=== PATIENT | female | born 1985 | race Hispanic/Latino ===

== ENCOUNTER 2019-02-05 14:05 | Inpatient (IN) | payer SELFPAY ==
[~2019-02-05] VITALS: Ht 154.9 cm; Wt 65.8 kg
[2019-02-05 14:34] LABS: BASOPHILS % (AUTO) 1.2 % (0.0-5.0); EOSINOPHILS % (AUTO) 1.4 % (0.0-8.0); HEMATOCRIT 37.9 % (36-48); LYMPHOCYTES % (AUTO) 24.3 % (21.0-51.0); MEAN CORPUSCULAR HEMOGLOBIN 25.3 pg (27.0-33.0); MEAN CORPUSCULAR HGB CONC 32.9 g/dL (32.0-36.0); MEAN CORPUSCULAR VOLUME 76.9 fL (79-99); NEUTROPHILS % (AUTO) 67.1 % (40.0-77.0); PLATELET COUNT (AUTO) 313 K/uL (130-400); RED BLOOD CELL COUNT(AUTO) 4.93 MIL/uL (4.00-5.50); RED CELL DISTRIBUTION WIDTH 17.2 % (11.0-15.5); WHITE BLOOD COUNT (AUTO) 6.3 K/uL (4.8-10.8)
[2019-02-05 14:35] LABS: BILIRUBIN,URINE Negative (NEGATIVE); COLOR,URINE Yellow (YELLOW); GLUCOSE, URINE (UA) Negative (NEGATIVE); KETONES,URINE Negative (NEGATIVE); LEUKOCYTE ESTERASE ,URINE Moderate (NEGATIVE); NITRATE,URINE Negative (NEGATIVE); OCCULT BLOOD,URINE Moderate (NEGATIVE); PH,URINE 5.5 (5.0-8.0); PROTEIN,URINE Negative (NEGATIVE)
[2019-02-05 14:39] LABS: HCG,QUAL RESULT NEGATIVE (NEGATIVE)
[2019-02-05 14:40] LABS: APPEARANCE,URINE SLIGHTLY CLOUDY (CLEAR)
[2019-02-05 14:44] LABS: CREATININE 0.8 mg/dL (0.5-1.5); POTASSIUM 3.3 mmol/L (3.5-5.1)
[2019-02-05 14:49] LABS: ALBUMIN 3.8 g/dL (3.5-5.0); BILIRUBIN,TOTAL 0.5 mg/dL (0.2-1.0); TOTAL PROTEIN, SERUM 7.6 g/dL (6.0-8.3)
[2019-02-05 14:58] LABS: BACTERIA,URINE Few /HPF (None Seen); MUCUS,URINE Many LPF (None Seen); RBC,URINE 0-1 /HPF (0-1)
[2019-02-05] MEDS ORDERED: SODIUM CHLORIDE 0.9% 1000ML 1,000 ML IV ONE (15:17)
[2019-02-05] MEDS ORDERED: KETOROLAC TROMETHAMINE 30MG/ML ONE (15:17)
[2019-02-05] MEDS ORDERED: FENTANYL CITRATE PF 50 MCG/1 ML 2ML VIAL ONE (16:46)
[2019-02-05] MEDS ORDERED: DOXYCYCLINE HYCLATE 100 MG TABLET PO ONE (18:15)
[2019-02-05] MEDS ORDERED: CEFTRIAXONE SODIUM 1 GM ONE (19:33)
[2019-02-05] MEDS ORDERED: AZITHROMYCIN 250 MG TABLET PO ONE (19:33)
[2019-02-05] MEDS ORDERED: LACTATED RINGERS 1000ML 1,000 ML IV ONE (19:34)
[2019-02-05] MEDS ORDERED: MORPHINE SULFATE 2 MG/ML 1ML SYG IVP PRN (20:00)
[2019-02-05] MEDS ORDERED: ACETAMINOPHEN 325 MG TAB PO PRN ×2 (20:00→20:45)
[2019-02-05] MEDS ORDERED: ONDANSETRON HCL 4 MG/2 ML VIAL IVP PRN (20:00)
[2019-02-05] MEDS ORDERED: DiphenhydrAMINE HCL 50 MG/ML VIAL IVP PRN (20:00)
--- NOTE | 2019-02-05 20:07 | NUR ---
Phone SBAR report received from KIZZY Kraft RN. Pt pending transfer to 111
[2019-02-05 20:38] VITALS: BP 126/77
--- NOTE | 2019-02-05 20:42 | NUR ---
Pt to bed, explaining current plan of care, observation with md evaluation in am; Instructing on use of call button & bed controls, to call for assistance to bathroom or for any concerns; use of pull cord while in bathroom for emergencies; TEDS & SCD's as precautions for VTE during hospital stay; informing of orders for prn pain med and regular diet. Pt voices understanding, agrees to plan of care & denies need for pain med adm at present. Addendum: 02/05/19 at 2044 by EDWIN SALINAS RN RN Amended: Links added.
[2019-02-05] MEDS ORDERED: DiphenhydrAMINE HCL 50 MG/ML VIAL IV PRN ×2 (20:45)
[2019-02-05] MEDS ORDERED: ACET-2743 PO (21:18)
--- NOTE | 2019-02-05 22:09 | NUR ---
DOCUMENTATION DONE BT NA TALBERT LVN, LVN Addendum: 02/05/19 at 2210 by ALHAJI WOODS LVN Amended: Links added.
--- NOTE | 2019-02-05 22:12 | NUR ---
DOCUMENTATION DONE BY ALHAJI WOODS LVN, NOT BLANCA GILBERT LVN Addendum: 02/05/19 at 2213 by ALHAJI WOODS LVN Amended: Links added.
[2019-02-05] MEDS: IBUPROFEN 600 MG TABLET PO SCH (22:30)
[2019-02-05 23:55] VITALS: BP 118/81
[2019-02-06] MEDS ORDERED: LACTATED RINGERS 1000ML 1,000 ML IV SCH
[2019-02-06] MEDS: LACTATED RINGERS 1000ML 1,000 ML IV SCH ×3 (02:26→14:48)
[2019-02-06 04:00] VITALS: BP 116/84
[2019-02-06] MEDS: IBUPROFEN 600 MG TABLET PO SCH ×4 (04:06→20:12)
[2019-02-06 07:08] LABS: BASOPHILS % (AUTO) 0.6 % (0.0-5.0); EOSINOPHILS % (AUTO) 2.3 % (0.0-8.0); HEMATOCRIT 32.5 % (36-48); LYMPHOCYTES % (AUTO) 27.8 % (21.0-51.0); MEAN CORPUSCULAR HEMOGLOBIN 25.7 pg (27.0-33.0); MEAN CORPUSCULAR HGB CONC 32.5 g/dL (32.0-36.0); MONOCYTES % (AUTO) 5.4 % (3.0-13.0); NEUTROPHILS % (AUTO) 63.9 % (40.0-77.0); NUCLEATED RED BLOOD CELLS 0.1 % (0.0-0.19); PLATELET COUNT (AUTO) 137 K/uL (130-400); RED BLOOD CELL COUNT(AUTO) 4.11 MIL/uL (4.00-5.50); RED CELL DISTRIBUTION WIDTH 17.5 % (11.0-15.5); WHITE BLOOD COUNT (AUTO) 5.1 K/uL (4.8-10.8)
[2019-02-06 07:22] LABS: HEMOGLOBIN A1C 5.8 % (4.0-6.0)
[2019-02-06 07:25] LABS: BILIRUBIN,TOTAL 0.3 mg/dL (0.2-1.0); CREATININE 0.7 mg/dL (0.5-1.5)
[2019-02-06 08:15] VITALS: BP 116/73
[2019-02-06 11:35] VITALS: BP 119/76
[2019-02-06] MEDS ORDERED: PHARMACY COMMUNICATION MISC SCH (12:15)
[2019-02-06] MEDS ORDERED: GENTAMICIN SULFATE 130 MG in SODIUM CHLORIDE 0.9% 100 ML IV SCH (13:00)
[2019-02-06] MEDS ORDERED: COMPOUND IV REFRIGERATED 1 EACH IVSOLN MISC PRN (13:00)
[2019-02-06] MEDS: CLINDAMYCIN 900 MG/D5% WATER 50 ML IV SCH ×2 (13:18→21:19)
[2019-02-06 16:35] VITALS: BP 122/83
[2019-02-06 19:19] VITALS: BP 126/80
[2019-02-06] MEDS: GENTAMICIN SULFATE 100 MG in SODIUM CHLORIDE 0.9% 100 ML IV SCH (21:19)
[2019-02-06 23:30] VITALS: BP 119/77
[2019-02-07] MEDS: IBUPROFEN 600 MG TABLET PO SCH ×3 (02:27→14:42)
[2019-02-07] MEDS: LACTATED RINGERS 1000ML 1,000 ML IV SCH (02:55)
[2019-02-07 03:50] VITALS: BP 112/63
[2019-02-07] MEDS: CLINDAMYCIN 900 MG/D5% WATER 50 ML IV SCH ×2 (05:00→12:39)
[2019-02-07] MEDS: GENTAMICIN SULFATE 100 MG in SODIUM CHLORIDE 0.9% 100 ML IV SCH (05:01)
[2019-02-07 07:40] VITALS: BP 118/79
--- NOTE | 2019-02-07 11:23 | NUR ---
MD DR. AGUIRRE ROUNDING ON PATIENT. NEW ORDERS RECEIVED. PATIENT OKAY FOR DISCHARGE, TO FOLLOW UP Wednesday02/13/19.
[2019-02-07 12:10] VITALS: BP 115/82
--- NOTE | 2019-02-07 14:45 | NUR ---
INSTRUCTIONS DISCHARGE INSTRUCTIONS READ AND EXPLAINED TO PATIENT. FOLLOW UP APPOINTMENT MADE FOR PATIENT 02/13/[address] AGUIRRE. METRONIDAZOLE 500MG AND DOXYCYCLINE 100MG PRESCRIPTION HANDED TO PATIENT.
--- NOTE | 2019-02-07 15:15 | NUR ---
DISCHARGE PATIENT LEFT UNIT VIA WHEELCHAIR WITH BELONGINGS IN HAND. PERSONAL VEHICLE USED FOR TRANSPORTATION.
== END 2019-02-07 15:15 | disposition home or self-care (01) | DRG 759 ==
LOC: EDH 14:05 → WSH 14:06
PROVIDERS: ADMIT Internal Medicine; ATTEND Internal Medicine
DX: N73.9 Female pelvic inflammatory disease, unspecified (principal)
CPT/HCPCS: 36415; 74176; 76830; 80053; 81001; 81025; 83036; 85025; 87210; 87486; 87797; G0378; J0696; J1580; J1885; J3010; J3490; J7030; J7120